=== PATIENT | female | born 1970 | race Caucasian/White ===

== ENCOUNTER 2017-04-15 14:44 | Outpatient (CLI) | payer BC ==
--- NOTE | 2017-05-06 09:31 | MMO ---
MAMMOGRAM DIGITAL SCREENING BILATERAL: DATE: 04/15/17 HISTORY: 46-year-old female for routine bilateral screening mammogram. Previous mammograms are unavailable. COMPARISON: None available. TECHNIQUE: Digital mammographic views. Computer-aided detection (CAD) utilized. FINDINGS: The breasts are extremely dense, which lowers the sensitivity of mammography. There are bilateral breast implants, which further decrease the sensitivity of mammography. Otherwise, there is no evidence of suspicious mass, suspicious calcifications, or architectural disto rtion. IMPRESSION: 1. BIRADS Category 2 - benign. 2. Recommendation: routine bilateral annual screening mammogram (unless the patient develops suspici ous clinical findings that would warrant earlier imaging follow up). mayra [] POS: JEREMIAH
== END 2017-04-15 14:45 | disposition home or self-care (01) ==
LOC: SCSMAMMO 14:44
PROVIDERS: ATTEND Family Medicine
DX: Z12.31 Encounter for screening mammogram for malignant neoplasm of breast (principal)
CPT/HCPCS: 77067; G0202

== ENCOUNTER 2017-08-30 15:07 | Outpatient (CLI) | payer BC | END 2017-08-30 15:08 | disposition home or self-care (01) | LOC: BICULT 15:07 | PROVIDERS: ATTEND Family Medicine | DX: R10.2 Pelvic and perineal pain (principal); D25.9 Leiomyoma of uterus, unspecified; N85.8 Other specified noninflammatory disorders of uterus | CPT/HCPCS: 76856 ==